=== PATIENT | female | born 1990 | race Caucasian/White ===

== ENCOUNTER 2017-09-06 05:15 | Inpatient (IN) | payer OTHER, SELFPAY | END 2017-09-08 15:44 | disposition home or self-care (01) | DRG 765 | PROVIDERS: Admitting Provider Nurse Practitioner Obstetrics & Gynecology; Visit Provider Nurse Practitioner Obstetrics & Gynecology | DX: O34.211 Maternal care for low transverse scar from previous cesarean delivery (principal); O72.0 Third-stage hemorrhage; N85.8 Other specified noninflammatory disorders of uterus; Z3A.39 39 weeks gestation of pregnancy; Z37.0 Single live birth | CPT/HCPCS: 59514; 58700; 36415; 80048; 80305; 81001; 82800; 85014; 85018; 85025; 86850; 86900; 86901; 87086; 88302; J2405 ==

== ENCOUNTER → 2020-09-11 20:35 | Outpatient (CLI) | payer OTHER, SELFPAY ==
--- NOTE | 2020-09-18 10:32 | PC.NURSE ---
PATIENT GOT SLEEP DEVICE ON 09/11/20 - DID NOT RETURN AND RT WENT TO HER HOUSE ON 09/17/20 AND GOT DEVICE - PATIENT DID NOT WEAR DEVICE - THEREFORE NO CHARGE
== END ==
PROVIDERS: PCP Nurse Practitioner Family; Visit Provider Nurse Practitioner Family
DX: G47.30 Sleep apnea, unspecified (principal)

== ENCOUNTER → 2020-10-04 09:05 | Outpatient (CLI) | payer OTHER, SELFPAY ==
--- NOTE | 2020-10-04 09:08 | XR_ITS ---
PROCEDURE: XR WRIST LT MIN 3V CLINICAL INDICATION: Lt wrist pain COMPARISON: No exams were available for comparison FINDINGS: No fracture or dislocation. No lytic or blastic change. There is normal mineralization. The joint spaces are well-preserved. No significant degenerative/arthritic changes. No erosive changes evident. Other findings:None. IMPRESSION: No acute findings. Dictated by: Farrukh Valverde MD 10/04/2020 17:08 Farrukh Valverde MD in [place] 10/04/2020 17:08
--- NOTE | 2020-10-04 09:08 | XR_ITS ---
PROCEDURE: XR WRIST RT MIN 3V CLINICAL INDICATION: Rt wrist pain COMPARISON: CR XR WRIST LT MIN 3V from 10/04/2020 FINDINGS: No fracture or dislocation. No lytic or blastic change. There is normal mineralization. The joint spaces are well-preserved. No significant degenerative/arthritic changes. No erosive changes evident. Other findings:A nonspecific lucency overlies lateral mid aspect of the scaphoid etiology indeterminate. Possibly due to overlying soft tissue plane only apparent on the AP view. IMPRESSION: No acute fracture. Nonspecific curvilinear lucency at the mid aspect of the scaphoid laterally. Questionable clinical significance. CT may provide further evaluation if clinically desired Dictated by: Farrukh Valverde MD 10/04/2020 17:07 Farrukh Valverde MD in [place] 10/04/2020 17:07
== END ==
PROVIDERS: PCP Physician Assistant; Visit Provider Orthopaedic Surgery
DX: G56.02 Carpal tunnel syndrome, left upper limb (principal); G56.01 Carpal tunnel syndrome, right upper limb
CPT/HCPCS: 73110

== ENCOUNTER → 2020-10-04 10:32 | Outpatient (CLI) | payer OTHER, SELFPAY ==
[2020-10-04 11:41] LABS: Basophils # 0.1 K/mm3 (0-0.2); Basophils % 0.9 % (0.1-2.0); Eosinophils # 0.4 K/mm3 (0.0-0.4); Eosinophils % 4.9 % (0.1-12.0); Hematocrit 50.7 % (37.0-47.0); Hemoglobin 16.4 g/dL (12.2-16.2); Lymphocytes # 2.7 K/mm3 (0.7-4.5); Lymphocytes % 32.8 % (10-50); Mean Corpuscular HGB Conc 32.2 g/dL (31.8-35.4); Mean Corpuscular Hemoglobin 31.9 pg (27.0-31.2); Mean Corpuscular Volume 98.8 fl (81-99); Mean Platelet Volume 7.4 fl (7.4-10.4); Monocytes # 0.4 K/mm3 (0.1-1.0); Monocytes % 5.4 % (1.7-9.3); Neutrophils # 4.5 K/mm3 (1.8-7.8); Neutrophils % 56.1 % (37.0-80.0); Platelet Count 219 K/mm3 (142-424); Red Blood Count 5.13 M/mm3 (4.20-5.40); Red Cell Distribution Width 13.5 % (11.5-17.5); White Blood Count 8.1 K/mm3 (4.8-10.8)
[2020-10-04 11:50] LABS: Alanine Aminotransferase 56 U/L (12-78); Albumin Level 4.2 g/dl (3.5-5.0); Albumin/Globulin Ratio 1.1 (1.1-1.8); Alkaline Phosphatase 93 U/L (38-126); Anion Gap 10.8 mEq/L (5-15); Aspartate Amino Transferase 42 U/L (14-36); Bilirubin,Total 0.6 mg/dl (0.2-1.3); Blood Urea Nitrogen 13 mg/dl (7-17); Calcium 9.4 mg/dl (8.4-10.2); Carbon Dioxide 26 mmol/L (22.0-30.0); Chloride 105 mmol/L (98-107); Estimated Glomerular Filt Rate 98 ml/min (>60); GFR (African American) 118 ML/MIN (>60); Globulin 3.7 g/dL (1.3-3.2); Glucose 107 mg/dl (74-100); Potassium 3.8 mmoL/L (3.5-5.1); Sodium 138 mmol/L (136-145); Total Protein,Serum 7.9 g/dl (6.3-8.2)
== END ==
PROVIDERS: Visit Provider Orthopaedic Surgery
DX: Z01.818 Encounter for other preprocedural examination (principal); G56.00 Carpal tunnel syndrome, unspecified upper limb
CPT/HCPCS: 36415; 80053; 85025

== ENCOUNTER → 2020-10-08 15:51 | Outpatient (CLI) | payer OTHER, SELFPAY ==
[2020-10-08 18:02] LABS: Coronavirus 19 IgG Antibody Negative (Negative); Coronavirus 19 IgM Antibody Negative (Negative)
== END ==
PROVIDERS: Visit Provider Orthopaedic Surgery
DX: Z01.818 Encounter for other preprocedural examination (principal); Z11.52 Encounter for screening for COVID-19; G56.01 Carpal tunnel syndrome, right upper limb
CPT/HCPCS: 36415; 86328

== ENCOUNTER 2020-10-10 06:12 | Day surgery (SDC) | payer OTHER, SELFPAY ==
[2020-10-09 15:48] VITALS: BMI 46.0
[2020-10-10 06:26] LABS: Urine Pregnancy, HCG Qual. Negative (Negative)
[2020-10-10 06:28] VITALS: BP 124/60; PULSE 89; RESP 18; TEMP 36.2; O2SAT 99
[2020-10-10 08:20] VITALS: BP 110/71; PULSE 77; RESP 16; TEMP 36.8; O2SAT 93
[2020-10-10 08:35] VITALS: BP 116/65; PULSE 83; RESP 18; TEMP 36.8; O2SAT 96
--- NOTE | 2020-10-10 08:44 | HMH.OPNOTE ---
Date of procedure: 10/10/20 Pre-op Diagnosis:: R carpal tunnel syndrome Post-op Diagnosis:: R carpal tunnel syndrome Procedure performed:: R carpal tunnel release Surgeon:: Cheri Hairston MD Yard Rigger(s):: ADRIANO Argueta PICKING BELT OPERATOR:: Raj Brianty Anesthesia: MAC, local Estimated blood loss (mL): 5 Clinical Note:: 30-year-old [id number]-vsadzfgu female with pain, numbness and tingling in bilateral upper extremities present for 3-4 months. No injury reported to the hands/wrists. Symptoms are confined from the wrist distally, throughout predominantly the radial side of the hand. She says that all of her fingers go numb except her small finger. She has persistent pain throughout the day, and all symptoms increase at nighttime. She has tried wearing braces on her wrist when she sleeps, but this has not helped; in fact, the braces have worsened her pain. Symptoms are increased while driving and lifting her children. She does not work outside the home and stays home to care for her children. She has noticed she is dropping things more often and is having a difficult time lifting pots and pans or caring for her children. She is a smoker. She denies any significant medical comorbidities; she does suffer from migraines and has some depression. She takes medications for both of these. No anticoagulation used. EMG?NCS was performed of bilateral upper extremities at [facility] on 09/03/2020, with results consistent with bilateral carpal tunnel syndrome, moderate on the right and mild on the left. I discussed treatment options with the patient, who would like to proceed with surgical intervention at this time. Bracing has not decreased her symptoms. I discussed the risks of surgery with the patient, including bleeding, infection, neurovascular damage, wound healing complications, postoperative pain and stiffness, recurrence of carpal tunnel. The patient vocalized understanding of the risks of surgery and provided informed consent for the procedure. Operative findings:: median nerve compression at the wrist at the carpal tunnel Operative note:: The patient was identified in preoperative holding and the R wrist signed by myself. She was then seen by anesthesia and the decision was made to perform the procedure with local/MAC. I reviewed the consent with the patient and all questions were answered. The patient was then taken to the OR where she was placed supine on the operative table with a hand table attached. 1 g of Ancef was infused intravenously and light sedation administered. The right arm was prepped and draped in the usual sterile fashion. Timeout was performed, identifying the correct patient, correct procedure, and correct site. The procedure was begun by anesthetizing the wrist with local anesthetic; 10cc 0.5% marcaine without epinephrine was used. Using a 25G needle, the marcaine was injected at the carpal tunnel using anatomic landmarks. Next the desired surgical incision was drawn on the wrist with marking pen. The incision was drawn over the volar aspect of the right wrist at the intersection of Arreguin's cardinal line and the radial border of the ring finger, extending proximally to the wrist flexion crease. The right arm was exsanguinated wtih Esmarch and the tourniquet inflated to 250mmHg. Incision was made with a 15 blade over the previously delineated incision. After the skin was incised, a blunt-tipped tenotomy scissors was used to bluntly spread the subcutaneous tissue. Tissue was spread until the transverse carpal ligament was identified. The proximal margin of the ligament was palpated with a Axtell elevator. I was able to slip the tip of the free air under the proximal edge of the transverse carpal ligament and into the carpal tunnel. Using a fresh 15 blade, I lightly teased to the fibers of the transverse carpal ligament and release them from proximally to distally using the Axtell to protect the underlying carpal tunnel contents. I contin
[2020-10-10 08:55] VITALS: BP 103/62; PULSE 72; RESP 18; TEMP 36.8; O2SAT 96
== END 2020-10-10 08:55 | disposition home or self-care (01) ==
PROVIDERS: PCP Physician Assistant; Visit Provider Orthopaedic Surgery
PROC: (CPT 64721; principal; 2020-10-10 07:30)
DX: G56.01 Carpal tunnel syndrome, right upper limb (principal)
CPT/HCPCS: 64721; 81025; 96374

== ENCOUNTER → 2022-01-08 11:24 | Outpatient (CLI) | payer OTHER, SELFPAY ==
--- NOTE | 2022-01-08 12:03 | CT_ITS ---
FINAL REPORT TECHNIQUE: Axial images through the abdomen and pelvis were performed without contrast. This study was performed with techniques to keep radiation doses as low as reasonably achievable, (ALARA). Individualized dose reduction techniques using automated exposure control or adjustment of mA and/or kV according to the patient's size were employed. CLINICAL HISTORY: LLQ pain FINDINGS: Abdomen: There is calcified granuloma in the medial left lung base. The gallbladder is present. There is mild diffuse fatty infiltration of the liver. The spleen, pancreas, adrenals and kidneys are unremarkable. Pelvis: The urinary bladder is unremarkable. The uterus is present and lies midline. The ovaries are unremarkable. The cervix appears somewhat prominent and slightly indistinct at the margins. The appendix is unremarkable. There is no pelvic mass or inflammation. There is bilateral pars defects at the L5 level. There is a moderate diffuse disc bulge at L5-S1. There is moderate bilateral neural foraminal narrowing. IMPRESSION: Prominent cervix with indistinct margins. Endovaginal ultrasound and gynecological evaluation is recommended. Reviewed, Interpreted and Dictated by Kalia Krishnamurthy MD Transcribed by Brenda Mesa Authenticated by Kalia Krishnamurthy MD on 01/08/2022 02:21:02 PM [facility]
[2022-01-08 12:32] LABS: Basophils # 0.1 K/mm3 (0-0.2); Basophils % 1.4 % (0.1-2.0); Eosinophils # 0.2 K/mm3 (0.0-0.4); Eosinophils % 2.7 % (0.1-12.0); Hematocrit 44.5 % (37.0-47.0); Hemoglobin 14.2 g/dL (12.2-16.2); Lymphocytes # 2.1 K/mm3 (0.7-4.5); Lymphocytes % 28.8 % (10-50); Mean Corpuscular HGB Conc 31.9 g/dL (31.8-35.4); Mean Corpuscular Hemoglobin 31.5 pg (27.0-31.2); Mean Corpuscular Volume 98.8 fl (81-99); Mean Platelet Volume 8.1 fl (7.4-10.4); Monocytes # 0.3 K/mm3 (0.1-1.0); Monocytes % 4.1 % (1.7-9.3); Neutrophils # 4.5 K/mm3 (1.8-7.8); Neutrophils % 62.8 % (37.0-80.0); Platelet Count 233 K/mm3 (142-424); Red Cell Distribution Width 13.7 % (11.5-17.5); White Blood Count 7.2 K/mm3 (4.8-10.8)
[2022-01-08 13:49] LABS: Alanine Aminotransferase 46 U/L (12-78); Albumin Level 3.8 g/dl (3.5-5.0); Albumin/Globulin Ratio 1.4 (1.1-1.8); Alkaline Phosphatase 71 U/L (38-126); Anion Gap 10.6 mEq/L (5-15); Aspartate Amino Transferase 42 U/L (14-36); Bilirubin,Total 0.7 mg/dl (0.2-1.3); Blood Urea Nitrogen 7 mg/dl (7-17); Calcium 8.8 mg/dl (8.4-10.2); Carbon Dioxide 25 mmol/L (22.0-30.0); Chloride 108 mmol/L (98-107); Chol/HDL Ratio 4.9 (1-3.5); Cholesterol 151 mg/dl (140-200); Estimated Glomerular Filt Rate 143 ml/min (>60); GFR (African American) 173 ML/MIN (>60); Globulin 2.8 g/dL (1.3-3.2); Glucose 119 mg/dl (74-100); HDL Cholesterol 31 mg/dl (40-60); Potassium 3.6 mmoL/L (3.5-5.1); Sodium 140 mmol/L (136-145); Total Protein,Serum 6.6 g/dl (6.3-8.2); Triglycerides 167 mg/dl (30-150); VLDL Cholesterol 33 mg/dL (0-40)
[2022-01-08 13:55] LABS: Total Iron Binding Capacity 481 ug/dL (265-497)
[2022-01-08 14:01] LABS: Direct LDL Cholesterol 83.53 mg/dL (100-129)
[2022-01-08 14:05] LABS: 25-OH Vitamin D, Total 24.7 ng/mL (30-100)
[2022-01-08 14:23] LABS: Thyroid Stimulating Hormone 0.97 uIU/mL (0.465-4.68)
[2022-01-08 16:48] LABS: Iron 186 ug/dL (37-170)
[2022-01-08 17:25] LABS: Ferritin 177 ng/ml (6.24-137)
== END ==
PROVIDERS: Visit Provider Physician Assistant
DX: R10.32 Left lower quadrant pain (principal); N93.9 Abnormal uterine and vaginal bleeding, unspecified
CPT/HCPCS: 36415; 74176; 80053; 80061; 82306; 82728; 83540; 83550; 84443; 85025

== ENCOUNTER → 2022-01-10 12:02 | Outpatient (CLI) | payer OTHER, SELFPAY ==
[2022-01-10 13:57] LABS: Iron 119 ug/dL (37-170)
[2022-01-10 14:17] LABS: Total Iron Binding Capacity 470 ug/dL (265-497)
[2022-01-10 14:37] LABS: Ferritin 184 ng/ml (6.24-137)
== END ==
PROVIDERS: PCP Physician Assistant; Visit Provider Physician Assistant
DX: E83.19 Other disorders of iron metabolism (principal); R79.89 Other specified abnormal findings of blood chemistry
CPT/HCPCS: 36415; 81256; 82728; 83540; 83550

== ENCOUNTER → 2022-01-12 09:58 | Outpatient (CLI) | payer OTHER, SELFPAY ==
--- NOTE | 2022-01-12 09:58 | US_ITS ---
FINAL REPORT CLINICAL HISTORY: abn vaginal bleeding; obesity FINDINGS: Transvaginal and transabdominal sonographic images of the pelvis were obtained. The uterus measures 8.6 x 5.7 x 4.7 cm. The endometrium measures 14 mm, which is at the upper limits of normal. No uterine mass is identified. The right ovary measures 4.1 cm in length and left ovary measures 3.7 cm in length. Normal blood flow seen to the ovaries. There are multiple peripheral follicles in the right ovary. There are multiple small left ovarian follicles. There is no evidence of free fluid. IMPRESSION: Multiple bilateral ovarian follicles worrisome for polycystic ovarian syndrome. Endometrium at the upper limits of normal. Reviewed, Interpreted and Dictated by Chacho Callejas III, MD Transcribed by Gokul Samayoa Authenticated by Chacho Callejas III, MD on 01/12/2022 11:47:[address] [facility]
== END ==
PROVIDERS: PCP Physician Assistant; Visit Provider Physician Assistant
DX: N93.9 Abnormal uterine and vaginal bleeding, unspecified (principal)
CPT/HCPCS: 76830

== ENCOUNTER → 2022-01-22 08:14 | Outpatient (CLI) | payer OTHER, SELFPAY ==
--- NOTE | 2022-01-22 08:15 | MR_ITS ---
FINAL REPORT CLINICAL HISTORY: high iron and ferritin. FINDINGS: Multiplanar MR imaging of the abdomen was obtained without contrast. There is mild hepatomegaly measuring 18 cm. The spleen is normal in size. On the axial images, there is no significant evidence of iron deposition within the renal cortex. The liver parenchyma is homogeneous. No discrete masses are identified. No definite signal abnormality is seen. The pancreas and adrenals are unremarkable. IMPRESSION: No definite evidence of hemochromatosis. Reviewed, Interpreted and Dictated by Kalia Krishnamurthy MD Transcribed by Nimo Hutchinson Authenticated by Kalia Krishnamurthy MD on 01/22/2022 10:56:39 AM [facility]
== END ==
PROVIDERS: PCP Physician Assistant; Visit Provider Physician Assistant
DX: R79.89 Other specified abnormal findings of blood chemistry (principal)
CPT/HCPCS: 74181

== ENCOUNTER → 2022-07-15 12:30 | Outpatient (CLI) | payer OTHER, SELFPAY ==
--- NOTE | 2022-07-15 12:37 | XR_ITS ---
FINAL REPORT CLINICAL HISTORY: wrist pain COMPARISON: 10/04/2020 FINDINGS: Left wrist Three views were obtained. There is no acute fracture or dislocation. The joint spaces appear normal. No soft tissue abnormality is identified. IMPRESSION: No acute process. Reviewed, Interpreted and Dictated by Chacho Callejas III, MD Transcribed by Nimo Hutchinson Authenticated and [facility]
== END ==
PROVIDERS: PCP Physician Assistant; Visit Provider Orthopaedic Surgery
DX: M25.532 Pain in left wrist (principal)
CPT/HCPCS: 73110

== ENCOUNTER → 2022-08-24 10:26 | Outpatient (CLI) | payer OTHER, SELFPAY ==
[2022-08-24 11:02] LABS: Basophils # 0.1 K/mm3 (0-0.2); Basophils % 0.9 % (0.1-2.0); Eosinophils # 0.4 K/mm3 (0.0-0.4); Eosinophils % 4.7 % (0.1-12.0); Hematocrit 44.8 % (37.0-47.0); Hemoglobin 14.5 g/dL (12.2-16.2); Lymphocytes # 2.9 K/mm3 (0.7-4.5); Lymphocytes % 36.4 % (10-50); Mean Corpuscular HGB Conc 32.4 g/dL (31.8-35.4); Mean Corpuscular Hemoglobin 31.7 pg (27.0-31.2); Mean Platelet Volume 7.5 fl (7.4-10.4); Monocytes # 0.3 K/mm3 (0.1-1.0); Monocytes % 4.2 % (1.7-9.3); Neutrophils # 4.2 K/mm3 (1.8-7.8); Neutrophils % 53.8 % (37.0-80.0); Platelet Count 231 K/mm3 (142-424); Red Blood Count 4.57 M/mm3 (4.20-5.40); Red Cell Distribution Width 13.4 % (11.5-17.5); White Blood Count 7.9 K/mm3 (4.8-10.8)
[2022-08-24 11:32] LABS: Urine Pregnancy, HCG Qual. Negative (Negative)
[2022-08-24 11:39] LABS: Alanine Aminotransferase 48 U/L (12-78); Albumin/Globulin Ratio 1.4 (1.1-1.8); Alkaline Phosphatase 91 U/L (38-126); Anion Gap 19.7 mEq/L (5-15); Aspartate Amino Transferase 42 U/L (14-36); Bilirubin,Total 0.3 mg/dl (0.2-1.3); Blood Urea Nitrogen 11 mg/dl (7-17); Calcium 9.6 mg/dl (8.4-10.2); Carbon Dioxide 25 mmol/L (22.0-30.0); Chloride 98 mmol/L (98-107); Estimated Glomerular Filt Rate 142 ml/min (>60); GFR (African American) 172 ML/MIN (>60); Globulin 2.9 g/dL (1.3-3.2); Glucose 109 mg/dl (74-100); Potassium 3.7 mmoL/L (3.5-5.1); Sodium 139 mmol/L (136-145); Total Protein,Serum 6.9 g/dl (6.3-8.2)
== END ==
PROVIDERS: PCP Physician Assistant; Visit Provider Orthopaedic Surgery
DX: Z01.818 Encounter for other preprocedural examination (principal); G56.02 Carpal tunnel syndrome, left upper limb
CPT/HCPCS: 36415; 80053; 81025; 85025

== ENCOUNTER 2022-08-26 09:21 | Day surgery (SDC) | payer OTHER, SELFPAY ==
[2022-08-24 10:35] VITALS: BMI 54.8
[2022-08-26 09:42] VITALS: BP 140/87; PULSE 87; RESP 18; TEMP 36.2; O2SAT 97
--- NOTE | 2022-08-26 10:51 | P.PN_ITS ---
PFSH PFSH Medical History Anxiety Depression Hx of abdominal abscess Surgical History History of carpal tunnel release History of section Family History Other Family history of asthma Family history of cancer Family history of diabetes mellitus type II Social History Smoking Status: Former smoker second hand exposure: No alcohol intake: former substance use type: denies use current occupational status: unemployed Travel in the last 8 weeks: None adopted: No caregiver/support person: No foster care: No household members: spouse and family housing: house lives independently: Yes marital status: education level: high school current occupation: stay at home mom current occupational exposures/hazards: No caffeine: Yes special mary carmen needs: No agree to transfusion: No do you feel safe at home: Yes victim of physical abuse: No victim of emotional abuse: No victim of sexual abuse: No would you like helpful sources: No [facility] Anesthesia Checklist Patient Identification Patient Identification: Arm Band and Verbal (Name & ) Structural Data Admitted From: Home Planned Operative Procedure/s: CTR Consent for Planned Operative Procedure(s) Verified: Yes NPO Status Verified Time NPO: 00:00 Additional verifications Anesthesia Reactions: No Hx Blood Transfusions: No Blood Transfusion Reaction: No Airway Assessment C-Spine Mobility Assessed: Yes TMJ Mobility Assessed: Yes Dentition: Poor Dentition Neurological Assessment Level of Consciousness: Awake Hx Seizures: No Numbness or tingling in extremities: No Anesthesia Plan Anesthesia Risk discussed: Yes Anesthesia Plan: Verified ASA Class: III Anesthesia Type: Local & MAC
[2022-08-26 11:36] VITALS: BP 106/61; PULSE 92; RESP 14; TEMP 36.3; O2SAT 95
[2022-08-26 11:51] VITALS: BP 126/65; PULSE 86; RESP 17; O2SAT 96
--- NOTE | 2022-08-26 12:01 | EXP.OP.NOTE ---
Date of procedure: 08/26/22 Pre-op Diagnosis:: Left carpal tunnel syndrome Post-op Diagnosis:: Same Procedure performed:: Left endoscopic carpal tunnel release Surgeon:: Wes Sr DO WOODWORK SALVAGE INSPECTOR:: Dimas Toribio Anesthesia: MAC and local Estimated blood loss (mL): 0 Operative findings:: See dictation Operative note:: Patient identified preoperatively left wrist marked yes my initial. Taken the operating room placed upon operating bed airway secured. Left upper extremity prepped draped normal sterile fashion. Once prepped and draped final operative timeout performed to identify proper patient procedure and extremity. Everyone involved in case agreed. No counter indications to beginning. Did receive preoperative antibiotics Marking pen was used to make plan incision over the volar wrist crease. Local anesthesia with lidocaine with epinephrine injected into the incision site. Adequate anesthesia confirmed. Skin knife was used to incise through skin. Scissors used to dissect down to identify the most proximal aspect of the transverse carpal ligament. Once identified the dilator was placed followed by the Segway left-sided specific sled into the carpal tunnel. Camera was inserted and the transverse carpal ligament clearly seen superiorly within the picture. Probe was used to probe and identify the end of the transverse carpal ligament. Rasp was used to remove synovium off the undersurface of the transverse carpal ligament. And then the arthroscopic Segway knife was inserted under direct visualization transverse carpal ligament was incised in its entirety camera was then placed back in the carpal tunnel to confirm full release. Irrigation wound performed skin closed with nylon stitch sterile hand dressing placed. Patient waken for sedation taken recovery stable condition. Condition: stable Disposition: PACU Complications:: None apparent
[2022-08-26 12:06] VITALS: BP 114/85; PULSE 88; RESP 18; O2SAT 98
[2022-08-26 12:36] VITALS: BP 128/72; PULSE 88; RESP 18; O2SAT 98
== END 2022-08-26 12:42 | disposition home or self-care (01) ==
PROVIDERS: PCP Physician Assistant; Visit Provider Orthopaedic Surgery
PROC: (CPT 64721; principal; 2022-08-26 11:15)
DX: G56.02 Carpal tunnel syndrome, left upper limb (principal)
CPT/HCPCS: 64721; 96374